=== PATIENT | male | born 2005 | race Caucasian/White ===

== ENCOUNTER 2024-01-09 17:42 | Emergency (ER) | payer SELFPAY ==
[2024-01-09] MEDS: Acetaminophen/HYDROcodone 325-5 MG Tab PO ONE (19:40)
== END 2024-01-09 20:39 | disposition home or self-care (01) ==
LOC: MW.ED 17:42
DX: S62.001A Unspecified fracture of navicular [scaphoid] bone of right wrist, initial encounter for closed fracture (principal); Z75.8 Other problems related to medical facilities and other health care; Z79.899 Other long term (current) drug therapy; V03.10XA Pedestrian on foot injured in collision with car, pick-up truck or van in traffic accident, initial encounter; Y93.89 Activity, other specified
CPT/HCPCS: 73110; 73130; 99283; A9270

== ENCOUNTER 2025-01-12 08:20 | Emergency (ER) | payer SELFPAY | END 2025-01-12 09:32 | disposition home or self-care (01) | LOC: MW.ED 08:20 | DX: M25.531 Pain in right wrist (principal); Z75.3 Unavailability and inaccessibility of health-care facilities | CPT/HCPCS: 73110-26-RT; 73110-RT; 73130-26-RT; 73130-RT; 99282; 99283 ==

== ENCOUNTER 2025-04-04 17:01 | Emergency (ER) | payer SELFPAY | END 2025-04-04 18:28 | disposition home or self-care (01) | LOC: MW.ED 17:01 | DX: S09.90XA Unspecified injury of head, initial encounter (principal); Z75.3 Unavailability and inaccessibility of health-care facilities; W52.XXXA Crushed, pushed or stepped on by crowd or human stampede, initial encounter | CPT/HCPCS: 70450; 70450-26; 70486; 70486-26; 72125; 72125-26; 99283; 99284 ==